=== PATIENT | female | born 1930 | race Caucasian/White ===

== ENCOUNTER 2018-02-18 18:26 | Emergency (ER) | payer OTHER ==
[2018-02-18 18:49] VITALS: BP 188/92; PULSE 82; TEMP 98.2; BMI 35.4
--- NOTE | 2018-02-18 20:23 | PDOC ---
History of Present Illness - General History Source: Patient Exam Limitations: No Limitations - History of Present Illness Initial Comments: 02/18/18 20:26 The patient is an 87 year old female with history of hypertension, hyperlipidemia, borderline diabetes, who presents to the ED complaining of a chronic area of redness on her right lower extremity, noticeably worse over the past few days. She states she has been seen by her doctor for this complaint in the past who has been treating her with OTC medications and topical treatments. Over the past few days the area has become larger, raised, with an opening. She denies any trauma or injury to the area. She denies fever or chills. She denies discharge. Of note, the patient also notes recent itching in her groin area. No abnormal vaginal discharge. No urinary complaints. PCP: Dr. Juan Francisco Lee (recently retired) <Cathy Cash - Last Filed: 02/18/18 20:39> <Shruthi Hernandez - Last Filed: 02/19/18 01:08> - General Chief Complaint: Wound Stated Complaint: RT LOWER LEG REDNESS Time Seen by Provider: 02/18/18 19:15 Past History <Cathy Cash - Last Filed: 02/18/18 20:39> - Past Medical History COPD: No HTN: Yes Hypercholesterolemia: Yes Thyroid Disease: Yes - Suicide/Smoking/Psychosocial Hx Smoking History: Never smoked Have you smoked in the past 12 months: No Information on smoking cessation initiated: No Hx Alcohol Use: No Drug/Substance Use Hx: No Substance Use Type: None <Shruthi Hernandez - Last Filed: 02/19/18 01:08> - Past Medical History Allergies/Adverse Reactions: Allergies Allergy/AdvReac Type Severity Reaction Status Date / Time No Known Allergies Allergy Verified 08/08/15 20:37 Home Medications: Ambulatory Orders Aspirin [Aspirin EC] 81 mg PO DAILY 08/08/15 Atenolol [Tenormin] 25 mg PO DAILY 08/08/15 Calcium 250Mg/Vit-D 125 Units [Oscal 250 mg+D -] 1 combo PO DAILY 08/08/15 Levothyroxine [Synthroid -] 75 mcg PO DAILY 08/08/15 Lisinopril 10 mg PO DAILY 08/08/15 Simvastatin 40 mg PO HS 08/08/15 Cephalexin Monohydrate [Keflex -] 500 mg PO Q8H #20 capsule 02/18/18 Review of Systems - Review of Systems Able to Perform ROS?: Yes Comments:: 02/18/18 20:28 Review of systems is as per HPI and otherwise negative. <Cathy Cash - Last Filed: 02/18/18 20:39> *Physical Exam - Vital Signs Last Vital Signs Temp Pulse Resp BP Pulse Ox 98.2 F 82 20 188/92 100 02/18/18 18:26 02/18/18 18:26 02/18/18 18:26 02/18/18 18:26 02/18/18 18:26 - Physical Exam Comments: 02/18/18 20:29 GENERAL: Awake, alert, and fully oriented, in no acute distress ENT: +Cerumen in the canal of the right ear. Left ear normal. Hearing grossly normal, nares patent, oropharynx clear without exudates. Moist mucosa EXTREMITIES: Wound as noted in SKIN. Normal range of motion, no edema. No clubbing or cyanosis. No cords, erythema, or tenderness NEUROLOGICAL: Cranial nerves II through XII grossly intact. Normal speech, normal gait SKIN: +2.5cm x 2.5 cm erythematous area of the mid anterior right lower extremity, central closed vesicle without purulent discharge present, no fluctuance palpable, there is a faint erythematous border extending 3 cm distally from the wound, no lymphangetic streaking noted from the wound. Wound is nontender. Otherwise Warm, Dry, normal turgor. <Cathy Cash - Last Filed: 02/18/18 20:39> - Vital Signs Last Vital Signs Temp Pulse Resp BP Pulse Ox 98.2 F 82 20 188/92 100 02/18/18 18:26 02/18/18 18:26 02/18/18 18:26 02/18/18 18:26 02/18/18 18:26 <Shruthi Hernandez - Last Filed: 02/19/18 01:08> Medical Decision Making - Medical Decision Making Documentation has been prepared under my direction and personally reviewed by me in its entirety. I attest that this documented accurately reflects all work, treatment, procedures and medical decision making performed by me. As noted above, this 87-year-old woman presents with a a few day history of increased erythema around a chronic wound of the right lower leg. No new trauma to the area ; daughter states that her mother had expose the area around the wound to sunlight the last few days. No fever or other systemic symptoms present. Patient states that area is not tender and there has been no purulent discharge. Exam as noted. Because of the presence of mild cellulitis around this chronic wound, patient will be started on Keflex (no history of MRSA or other resistant organisms) 500 mg 3 times a day with first dose given here in the emergency room. Since the patient's PMD recently retired, she currently has no PMD for follow- up. Daughter states that they are currently looking for a new doctor for her mother. Meanwhile, patient will be referred to Dr. Arevalo and the chronic wound Center at [facility]. <Shruthi Hernandez - Last Filed: 02/19/18 01:08> *DC/Admit/Observation/Transfer - Attestations Scribe Attestion: 02/18/18 20:30 Documentation prepared by Cathy Cash, acting as infertility medical assistant for Shruthi Hernandez MD. <Cathy Cash - Last Filed: 02/18/18 20:39> <Shruthi Hernandez - Last Filed: 02/19/18 01:08> Diagnosis at time of Disposition: Wound cellulitis, Cerumen impaction - Discharge Dispostion Disposition: HOME Condition at time of disposition: Stable - Prescriptions Prescriptions: Cephalexin Monohydrate [Keflex -] 500 mg PO Q8H #20 capsule - Referrals Referrals: Benjie Arevalo MD [Staff Physician] - - Patient Instructions Printed Discharge Instructions: DI for Wound Infection Additional Instructions: Please take your Keflex as prescribed. Follow up with Dr. Arevalo of the [facility]. Return to the Emergency Department if you noticed significant worsening of your symptoms.
[2018-02-18] MEDS ORDERED: CEPHALEXIN MONOHYDRATE 500 MG CAPSULE (UD) PO ONE (20:39)
[2018-02-18] MEDS ORDERED: CEPHALEXIN MONOHYDRATE 500 MG CAPSULE (UD) ONE (20:43)
[2018-02-18 20:46] LABS: PH,URINE 6.5 (4.5-8); URINE BILIRUBIN Negative (NEGATIVE); URINE GLUCOSE (UA) Trace (NEGATIVE); URINE KETONE Negative (NEGATIVE); URINE NITRITE Positive (NEGATIVE); URINE PROTEIN Negative (NEGATIVE); URINE UROBILINOGEN 0.2 (0.2-1.0)
[2018-02-18 20:52] LABS: URINE LEUK ESTERASE 1+ (NEGATIVE)
[2018-02-18 20:53] LABS: URINE APPEARANCE HAZY; URINE COLOR YELLOW
[2018-02-18 21:04] LABS: URINE RBC NONE SEEN /hpf (0-3)
[2018-02-18 21:05] LABS: EPI CELLS 0-3 /HPF; URINE BACTERIA MODERATE /hpf (NEGATIVE)
== END 2018-02-18 20:49 | disposition home or self-care (01) ==
LOC: FER 18:26
DX: L03.115 Cellulitis of right lower limb (principal); S81.801D Unspecified open wound, right lower leg, subsequent encounter; X58.XXXD Exposure to other specified factors, subsequent encounter; H61.21 Impacted cerumen, right ear; I10 Essential (primary) hypertension; E78.5 Hyperlipidemia, unspecified; R73.03 Prediabetes; Z79.82 Long term (current) use of aspirin
CPT/HCPCS: 81003; 81015; 87070; 87186; 87205; 99282-25